=== PATIENT | female | born 1990 | race Caucasian/White ===

== ENCOUNTER 2021-09-08 14:32 | Emergency (ER) | payer OTHER ==
[~2021-09-08] VITALS: Ht 170.2 cm; Wt 88.2 kg
[2021-09-08 14:40] VITALS: TEMP 97.7
[2021-09-08] MEDS ORDERED: WELLBUTRIN XL300 M1 PO (14:53)
[2021-09-08] MEDS ORDERED: ZYRTEC5 MG PO (14:54)
[2021-09-08] MEDS ORDERED: PRENATAL TABLET PO (14:54)
[2021-09-08 15:35] VITALS: BP 115/75; PULSE 97
== END 2021-09-08 15:38 | disposition home or self-care (01) ==
LOC: COL.ER 14:32
DX: O9A.213 Injury, poisoning and certain other consequences of external causes complicating pregnancy, third trimester (principal); S91.312A Laceration without foreign body, left foot, initial encounter; Z3A.37 37 weeks gestation of pregnancy; W26.0XXA Contact with knife, initial encounter

== ENCOUNTER 2021-09-27 09:53 | Inpatient (IN) | payer OTHER ==
[~2021-09-27] VITALS: Ht 170.2 cm; Wt 90.0 kg
[~2021-09-27 09:53] MED LIST: PRENATAL TABLET PO; WELLBUTRIN XL300 M1 PO; ZYRTEC5 MG PO
[2021-09-27 20:00] VITALS: BP 128/89; PULSE 121; TEMP 98.9
[2021-09-27 20:30] VITALS: BP 127/75; PULSE 122
[2021-09-27 21:00] VITALS: BP 129/69; PULSE 109
[2021-09-27 21:30] VITALS: BP 127/75; PULSE 122
[2021-09-27 21:44] LABS: BASO % 0.3 % (0.0-2.0); EOS % 0.3 % (0.0-4.0); GRAN # 6.3 K/mm3 (1.4-6.5); GRAN % 71.3 % (42.2-75.2); HEMOGLOBIN 11.9 g/dl (12.5-16.0); LYMPH # 1.9 K/mm3 (1.2-3.4); LYMPH % 21.5 % (20.0-51.0); MEAN CELL VOLUME 80 fl (80.0-100.0); MEAN CORPUSCULAR HEMOGLOBIN 27 pg (27-31); MEAN CORPUSCULAR HGB CONC 34 g/dl (33.0-37.0); MEAN PLATELET VOLUME 11.6 fl (7.4-10.4); MONO # 0.5 K/mm3 (0.1-0.6); MONO % 5.8 % (1.7-9.3); PLATELET COUNT 223 K/mm3 (130-400); REDCELL DISTRIBUTION WIDTH-CV 13.8 % (11.5-14.5)
[2021-09-27 21:50] LABS: HEMATOCRIT 35.3 % (37.0-47.0)
--- NOTE | 2021-09-27 22:51 | NUR ---
31 YO AT 40 WEEKS TO LDR3 FOR INDUCTION OF LABOR FOR CONVIENENCE. PT DENIES FEELING ANY CTXS, DENIES VAGINAL BLEEDING OR LEAKING FLUID AND REPORTS GOOD ACTIVITY. INDUCTION PROCESS EXPLAINED TO PT AND FRIEND, ALL QUESTIONS ANSWERED
--- NOTE | 2021-09-27 23:07 | NUR ---
2019 SVE DONE CL/THICK/HIGH, CYTOTEC 25MCG TO POSTERIOR FORNIX OF VAGINA 2029 - 20G TO LEFT FOREARM, SALINE LOCKED, LAB DRAWN WITH IV START
--- NOTE | 2021-09-27 23:54 | NUR ---
[facility] NOT TRACING CTXS DUE TO MATERNAL POSITION
--- NOTE | 2021-09-27 23:57 | NUR ---
[facility] NOT TRACING CTXS D/T MATERNAL POSITION
[2021-09-28] VITALS (37 sets, daily range): BP systolic 90–166; BP diastolic 42–98; PULSE 89–111; TEMP 97.7–99
--- NOTE | 2021-09-28 07:20 | NUR ---
[id number] Patient off FHR monitor. ambulating and eating before starting pitocin.
--- NOTE | 2021-09-28 13:10 | NUR ---
1247 Pt sitting up for epidural. maternal heart rate tracing. This RN at bedside. 1306 Test dose given. pt tolerates well. will continue to monitor. safety precautions discussed. pt verbalizes understanding.
--- NOTE | 2021-09-28 14:20 | NUR ---
1352 This RN notices variable decelerations in the FHR monitor. 1353 This RN at bedside readjusting patient position to left lateral.increasing lactated ringers. 1400 flipping patient to right lateral. starting oxygen at 6L. Ángel CHU called into room. pitocin turned off. Patient flipped into knees to chest. Danya Darby performs SVE. /-2 with a prolapsed cord. Emergency cord is pulled at 1411. Ángel joy comes into room. Driver catheter placed. 1412 Dr. Mc called. Kwesi Daniels arrives at bedside. 1420 Pt taken to OR for section.
[2021-09-29 04:15] VITALS: BP 120/73; PULSE 88; TEMP 98.1
[2021-09-29 07:00] VITALS: BP 110/70; PULSE 84; TEMP 98
--- NOTE | 2021-09-29 09:34 | NUR ---
Initial visit attempt; Nurse was with Patient. Certified Financial [employer]anner left card of congratulations and God's blessings for the of their daughter and information regarding the availability of spiritual care at our hospital.
[2021-09-29 12:23] VITALS: BP 113/71; PULSE 86; TEMP 97.8
[2021-09-29 16:48] VITALS: BP 131/84; PULSE 101; TEMP 98
[2021-09-29 20:15] VITALS: BP 119/73; PULSE 96; TEMP 98
[2021-09-30 08:00] VITALS: BP 120/79; PULSE 107; TEMP 97.6
[2021-09-30] MEDS ORDERED: IBU800 M1 PO (08:42)
[2021-09-30] MEDS ORDERED: PERCOCET 325 MG1 TA2 PO (08:43)
[2021-09-30 16:52] VITALS: BP 120/77; PULSE 95; TEMP 98.1
[2021-09-30 20:30] VITALS: BP 130/68; PULSE 88; TEMP 97.7
[2021-10-01 02:00] VITALS: BP 116/72; PULSE 89; TEMP 97.8
[2021-10-01 08:00] VITALS: BP 134/78; PULSE 99; TEMP 97.9
--- NOTE | 2021-10-01 12:30 | NUR ---
Discharge instructions and follow up care reviewed with pt and at the bedside. Both verbalized an understanding, agreed with the plan and states no questions or concerns at this time.
== END 2021-10-01 13:00 | disposition home or self-care (01) | DRG 788 ==
LOC: OB → LDR 21:26 → OB 21:26
PROVIDERS: ADMIT Student in an Organized Health Care Education/Training Program
PROC: 3E0P7VZ Introduction of Hormone into Female Reproductive, Via Natural or Artificial Opening (ICD-10-PCS; 2021-09-27)
PROC: 3E033VJ Introduction of Other Hormone into Peripheral Vein, Percutaneous Approach (ICD-10-PCS; 2021-09-27)
PROC: 10D00Z1 Extraction of Products of Conception, Low, Open Approach (ICD-10-PCS; principal; 2021-09-28)
DX: O99.824 Streptococcus B carrier state complicating childbirth (principal); O99.344 Other mental disorders complicating childbirth; F32.A Depression, unspecified; F41.9 Anxiety disorder, unspecified; O69.0XX0 Labor and delivery complicated by prolapse of cord, not applicable or unspecified; O26.893 Other specified pregnancy related conditions, third trimester; Z3A.39 39 weeks gestation of pregnancy; Z37.0 Single live birth; Z67.41 Type O blood, Rh negative; Z23 Encounter for immunization
CPT/HCPCS: J0171; J0690; J1100; J1885; J2400; J2405; J2590; J2704; J2791; J3370; J7050; J7120